=== PATIENT | female | born 1970 ===

== ENCOUNTER 2020-02-07 11:21 | Outpatient (REF) | payer MEDICAID, SELFPAY ==
[2020-02-10 11:13] LABS: Campylobacter PCR Negative (Negative); Salmonella PCR Negative (Negative); Shiga Toxin PCR Negative (Negative); Shigella/Enteroinvasive Ecoli Negative (Negative)
== END 2020-02-07 11:41 ==
LOC: NCHCN 11:21
PROVIDERS: PCP Family Medicine; Visit Provider Family Medicine
DX: K92.1 Melena (principal)
CPT/HCPCS: 87329; 87505; 83630; 87177

== ENCOUNTER 2021-04-06 10:57 | Outpatient (REF) | payer MEDICAID, SELFPAY ==
--- NOTE | 2021-04-06 10:15 | SKI_PTH ---
PATIENT: Damaris Perez LOC: [facility] U#:[id number] AGE/SX: 50/F ROOM: RE04/06/[address]: Ervin Barth : 1970 BED: DIS: 04/06/2021 SPEC #: [id number] RECD: 04/06/21 12:55 STATUS: ALEXIA HAYES #: [id number] ALLISON: 04/06/21 10:[address]: Ervin Barth DEPT: Surgical Specimen RECD BY: Britni Locke Tissues: 1 - SKIN BIOPSY(SHAVE/PUNCH) Procedures: SKIN LEVEL 4 Comments: [id number]
== END 2021-04-06 10:58 | disposition home or self-care (01) ==
LOC: NCHCN 10:57
PROVIDERS: PCP Family Medicine; Visit Provider Family Medicine
DX: L82.0 Inflamed seborrheic keratosis (principal)
CPT/HCPCS: 88305

== ENCOUNTER 2022-11-10 14:23 | Outpatient (REF) | payer MEDICAID, SELFPAY ==
[2022-11-10 21:05] LABS: HGB 12.3 g/dL (11.2-15.7); MCHC 31.5 % (32.0-36.0); MCV 79 fL (80-95); MPV 11.4 fL (8.0-11.0); Platelet Count 316 10^3/uL (130-400); RBC 4.92 10^6/uL (3.93-5.22); RDW 18.7 % (11.7-14.6); RDW-SD 53.4 fL; WBC 5.34 10^3/uL (4.4-10.8)
[2022-11-10 21:41] LABS: ALT 13 U/L (14-59); AST 26 U/L (15-37); Albumin 3.7 g/dL (3.4-5.0); Alkaline Phosphatase 61 U/L (46-116); Anion Gap 6.2 mmol/L (3-11); BUN 8 mg/dL (7-18); Bilirubin, Total 0.3 mg/dL (0.2-1.0); CO2 29.8 mmol/L (21.0-32.0); CREATININE 0.8 mg/dL (0.55-1.02); Calcium 8.8 mg/dL (8.5-10.1); Chloride 104 mmol/L (98-107); Glucose 156 mg/dL (74-106); Potassium 4.3 mmol/L (3.5-5.1); Sodium 140 mmol/L (136-145)
[2022-11-11 09:35] LABS: Vitamin B12 349 pg/mL (193-986)
== END 2022-11-10 14:24 | disposition home or self-care (01) ==
LOC: NCHCN 14:23
PROVIDERS: PCP Family Medicine; Visit Provider Family Medicine
DX: N92.0 Excessive and frequent menstruation with regular cycle (principal); R17 Unspecified jaundice; E44.0 Moderate protein-calorie malnutrition; R79.89 Other specified abnormal findings of blood chemistry
CPT/HCPCS: 80053; 85027; 82607

== ENCOUNTER 2023-03-17 16:44 | Outpatient (REF) | payer MEDICAID, SELFPAY ==
[2023-03-17 20:40] LABS: HCT 28.6 % (36.0-46.0); HGB 9.1 g/dL (11.2-15.7); MCHC 31.8 % (32.0-36.0); MCV 82 fL (80-95); MPV 11.1 fL (8.0-11.0); Platelet Count 407 10^3/uL (130-400); RDW 14.9 % (11.7-14.6); RDW-SD 44.3 fL; WBC 5.46 10^3/uL (4.4-10.8)
[2023-03-17 20:54] LABS: Hemoglobin A1C 5.1 % (<5.7)
[2023-03-17 21:15] LABS: Vitamin D 25 Total 30.7 ng/mL (30-100)
[2023-03-17 21:24] LABS: Anion Gap 6.3 mmol/L (3-11); BUN 9 mg/dL (7-18); CO2 30.7 mmol/L (21.0-32.0); CREATININE 0.8 mg/dL (0.55-1.02); Calcium 8.8 mg/dL (8.5-10.1); Chloride 100 mmol/L (98-107); Ferritin 8 ng/mL (8-252); Glucose 92 mg/dL (74-106); Potassium 4.3 mmol/L (3.5-5.1); Sodium 137 mmol/L (136-145); TSH (W/Ref FT4) 0.29 uIU/mL (0.36-3.74); Vitamin B12 263 pg/mL (193-986)
[2023-03-17 21:42] LABS: FREE T4 1.15 ng/dL (0.76-1.46)
[2023-03-17 21:53] LABS: Iron 95 ug/dL (50-170); Total Iron Binding Capacity 399 ug/dL (250-450); Transferrin Sat 24 % (15-50)
== END 2023-03-17 16:45 | disposition home or self-care (01) ==
LOC: NCHCN 16:44
PROVIDERS: PCP Family Medicine; Visit Provider Family Medicine
DX: R63.1 Polydipsia (principal); Z78.0 Asymptomatic menopausal state; R53.83 Other fatigue; N92.0 Excessive and frequent menstruation with regular cycle
CPT/HCPCS: 80048; 82306; 85027; 82607; 82728; 83036; 83540; 83550; 84439; 84443

== ENCOUNTER 2024-12-20 11:39 | Outpatient (REF) | payer MEDICAID, SELFPAY ==
[2024-12-20 14:40] LABS: Abs Immature Grans 0.03 10^3/uL (0.0-0.06); Absolute Basophil Count 0.04 10^3/uL (0.0-0.2); Absolute Eosinophil Count 0.23 10^3/uL (0.0-0.7); Absolute Lymphocyte Count 2.11 10^3/uL (1.2-3.4); Absolute Monocyte Count 0.44 10^3/uL (0.1-0.8); Absolute Neutrophil Count 3.31 10^3/uL (1.2-6.7); Basophils % 0.6 %; Eosinophils % 3.7 %; HGB 14.3 g/dL (11.2-15.7); Immature Grans % 0.5 %; Lymphocytes % 34.3 %; MCH 28.8 pg (27.0-33.0); MCHC 31.8 % (32.0-36.0); MCV 91 fL (80-95); MPV 10.7 fL (8.0-11.0); Monocytes % 7.1 %; Neutrophils % 53.8 %; Platelet Count 381 10^3/uL (130-400); RBC 4.96 10^6/uL (3.93-5.22); RDW 13.7 % (11.7-14.6); WBC 6.16 10^3/uL (4.4-10.8)
[2024-12-20 14:47] LABS: ALT 26 U/L (14-59)
== END 2024-12-20 11:40 | disposition home or self-care (01) ==
LOC: LBN 11:39
PROVIDERS: PCP Family Medicine; Visit Provider Internal Medicine Infectious Disease
DX: J86.9 Pyothorax without fistula (principal)
CPT/HCPCS: 84460; 85025